=== PATIENT | male | born 1975 | race African-American/Black ===

== ENCOUNTER 2019-08-21 18:40 | Inpatient (IN) ==
[2019-08-21] MEDS ORDERED: NS 1,000 ML IV ONE (19:51)
[2019-08-21] MEDS ORDERED: CLINDAMYCIN 600 MG/NS 600 MG/50 ML IVPB IV ONE (20:39)
[2019-08-21] MEDS ORDERED: FLAGYL 500 MG/NS 500 MG/100 ML IVPB IV ONE (20:39)
[2019-08-21 20:42] LABS: BASO# 0.03 X1000 (0.0-0.2); BASO% 0.3 % (0.0-0.8); EOS# 0.02 X1000 (0.0-0.7); EOS% 0.2 % (0.0-10.0); HEMATOCRIT 42.1 % (42.0-52.0); HEMOGLOBIN 13.8 g/dL (14.0-18.0); LYMPH% 13.5 % (20.5-51.1); MCH 30.2 PG (27-31); MCHC 32.8 g/dL (33-37); MCV 92.1 FL (81-99); MONO# 1.05 X1000 (0.11-0.59); MONO% 11.8 % (1.7-9.3); MPV 12.2 FL (7.4-10.4); NEUT# 6.58 X1000 (1.4-6.5); NEUT% 74.2 % (42.2-75.2); PLT 195 X1000 (130-400); RBC 4.57 XMIL (4.7-6.1); RDW 12.8 % (11.5-14.5); WBC 8.88 X1000 (4.8-10.8)
[2019-08-21] MEDS ORDERED: CLINDAMYCIN 600 MG/D5W 600 MG/50 ML IVPB IV ONE (21:00)
[2019-08-21] MEDS ORDERED: MOTRIN PO ONE (21:31)
[2019-08-21] MEDS ORDERED: MORPHINE IV ONE (21:32)
[2019-08-21 21:33] LABS: AGAP 18; ALB/GLOB RATIO 0.9; ALBUMIN 3.9 g/dL (3.5-5.0); ALKALINE PHOSPHATASE 113 U/L (32-122); BUN 10 mg/dL (8-22); CALCIUM 10.4 mg/dL (8.8-10.2); CHLORIDE 91 mmol/L (98-107); COSMO 279; CREATININE 1.1 mg/dL (0.7-1.2); ESTIMATED GFR > 60; GOT 34 U/L (10-34); GPT 32 U/L (10-44); POTASSIUM 4.2 mmol/L (3.5-5.1); SODIUM 131 mmol/L (136-145); TCO2 22 mmol/L (25-35); TOTAL BILIRUBIN 1.53 mg/dL (0.20-1.00); TOTAL PROTEIN 8.2 g/dL (6.3-8.3)
[2019-08-21] MEDS ORDERED: LEVAQUIN 750 MG/D5W 750 MG/150 ML IVPB IV SCH (21:45)
[2019-08-21 21:46] LABS: GLUCOSE 399 mg/dL (70-104)
--- NOTE | 2019-08-21 22:40 | PROVIDER DOCUMENTATION ---
This chart was entered by Champ Lopez Scribe, acting as scribe for Rebeca Elizabeth MD. HPI-Rash/Wound/ReCheck - General Chief Complaint: Abscess Stated Complaint: ABCESS ON STOMACH Time Seen by Provider: 08/21/19 19:21 Source: patient, family Allergies/Adverse Reactions: Allergies Allergy/AdvReac Type Severity Reaction Status Date / Time Penicillins Allergy Unknown Verified 08/21/19 19:58 Home Medications: Home Medication List Medication Instructions Recorded Confirmed Last Taken Type Rosuvastatin Calcium 20 mg PO QHS 05/08/18 08/21/19 Unknown History Sitagliptin Phosphate [Januvia] 100 mg PO DAILY 05/08/18 08/21/19 Unknown History Solriamfetol HCl [Sunosi] 75 mg PO DAILY 08/21/19 08/21/19 Unknown History Insulin Glargine [Lantus Insulin] 30 unit SUBQ DAILY #1 unit 08/24/19 Unknown Rx Sulfamethoxazole/Trimethoprim 1 ea PO BID #20 tab 08/24/19 Unknown Rx [Bactrim Ds Tablet] - History of Present Illness-Dermatology Nature of Presenting Problem: 43 yof presents to the ed with c/o abscess on RLQ of abdomen. pt states similar hx. pt states onset for 3 days. pt states last occurrence was 2 months ago, busted on its own. pt states couple of surgeries to drain abscess(1-2 years ago) , but usually drains on its own. pt states hx of DM, with mediation Location: reports: other (RLQ abdomen) Quality: reports: painful Onset/Duration: reports: 3 days ago Timing: reports: still present (busted in ed on its own draining) Context/Associated Symptoms: reports: abscess Identifiable cause?: No Locality of Occurance: Home Similar Symptoms Previously?: Yes Recently seen or treated by another doctor?: No Review of Systems - Adult - REVIEW OF SYSTEMS - ADULT Constitutional: denies: chills, fever Eyes: reports: no symptoms reported Ears, Nose, Mouth & Throat: reports: no symptoms reported Cardiovascular: reports: no symptoms reported Respiratory: denies: shortness of breath, wheezing Gastrointestinal: denies: diarrhea, nausea, vomiting Genitourinary: reports: no symptoms reported Musculoskeletal: reports: no symptoms reported Integumentary: reports: see HPI. denies: hives, rash Neurological: reports: no symptoms reported Psychiatric: reports: no symptoms reported Endocrine: reports: no symptoms reported Hematologic/Lymphatic: reports: no symptoms reported Allergic/Immunologic: reports: no symptoms reported All Other Systems: Reviewed and Negative Past History - Adult - PAST MEDICAL HISTORY-ADULT Review of Records: reports: Old Records Reviewed, Nursing Assessment Review, Medications Reviewed, Social history reviewed & non-contributory. Major Childhood Illnesses: reports: denies history Cardiovascular: reports: HTN Respiratory: reports: denies history Gastrointestinal: reports: denies history Obstetrical/Gynecological: reports: denies history Genitourinary: reports: denies history Musculoskeletal: reports: denies history Neurological: reports: denies history Psychiatric: reports: denies history Endocrine/Immune: reports: Diabetes Other Conditions: reports: denies history - PRIOR SURGERIES/PROCEDURES Surgical/Procedure History: reports: reviewed, not pertinent - IMMUNIZATION STATUS Childhood Immunizations: See Nurse Assessment Flu Vaccine: See Nurse Assessment - FAMILY HISTORY Family History: reviewed, not pertinent - SOCIAL HISTORY Smoking: cigarettes, less than 1 pack/day Provider spent 3-5 mins advising pt. on dangers of tobacco.: Discussed manners to quit use, and f/u contacts for add'l counseling. Substance Use: alcohol Alcohol Use Frequency: occasionally Living Situation: family Physical Exam-General - PHYSICAL EXAM-ADULT Initial Vital Signs Reviewed: Yes - CONSTITUTIONAL General Appearance: appears well, alert, mild distress, obese - RESPIRATORY Respiratory: chest non-tender, lungs clear, normal breath sounds - CARDIOVASCULAR Cardiovascular: regular rate, rhythm, tachycardia (128) - GENITOURINARY Male Genitalia: deferred Rectal Exam: deferred Hemoccult Exam: deferred - SKIN Integumentary: other (abscess RLQ of abdomen) - NEUROLOGIC Neurologic: grossly normal, no motor/sensory deficits - PSYCHIATRIC Psych/Mental Status: normal mood/affect, normal thought content, normal thought process, oriented x 3 Progress - PLAN OF CARE/RESULTS Result Diagrams: 08/23/19 06:37 08/23/19 06:37 - REASSESSMENT Reassessment #1 Time Reassessed: 00:44 Status: unchanged (no current concerns for sepsis as pt with normal WBC and normal lactate. CT showing draining abscess, no concerns for bowel involvement. pt to be admitted. added vanc for MRSA coverage.) - CT/MRI 1 CT Study: Abdomen, Pelvis Impression: See EMR Report (significant anterior pelvic wall soft tissue swelling and areas of gas including skin ulceration or open wound. no underlying fluid collection or hernia. 15mm left adrenal nodule, stable, kidney cyst, stable enlarged fatty liver, similar to previous CT,) - CONSULTS/PCP/HOSPITALIST Notification #1 *Consult/PCP/Hospitalist*: Dr. Bazan Time Discussed: 21:31 (levaquin and flagyl) Consult Disposition: Admit, other #2 Consult: Dr. Kraus Time Discussed: 22:25 Consult Disposition: Will see in ED Departure - Departure Date of Disposition Decision: 08/21/19 Time of Disposition Decision: 22:39 DIAGNOSIS: Tobacco use, Abscess Disposition: ADMITTED INPATIENT 09 Certified Medical Emergency: Emergent Condition: Stable - Critical Care Note This patient required my direct & personal management of CC.: No Attestation - Physician/ ANAIS Attestation Patient care was provided by Advanced Practice Provider:: Yes Advanced Practice Provider documentation review:: The Mid-level provider documentation, treatment plan and medical decision making was reviewed by the physician who agrees with all treatment and medical decision making by the MLP. The physician spent face to face time with patient:: Yes Advanced Practice Provider documentation review:: Supervising physician onsite and consulted in the evaluation and care of this patient. The physician did have a face to face encounter with the patient. This chart was documented by the indicated scribe, (Champ Lopez, Zac) and accurately reflects the services I performed and decisions made by me, Rebeca Elizabeth MD, as attested by the provider's signature.
[2019-08-21] MEDS ORDERED: VANCOMYCIN 1 GM/NS 1 GM/250 ML IVPB IV ONE (23:34)
[2019-08-22] MEDS ORDERED: VANCOMYCIN IV PER PHARMACY MISC SCH (00:30)
[2019-08-22] MEDS ORDERED: ZOFRAN IV PRN (01:00)
[2019-08-22] MEDS ORDERED: MORPHINE IV PRN (01:00)
[2019-08-22] MEDS: NS 1,000 ML IV SCH ×3 (01:28→18:02)
--- NOTE | 2019-08-22 03:12 | HISTORY AND PHYSICAL ---
PRIMARY CARE PHYSICIAN: Dr. Varinder Savage. CHIEF COMPLAINT: Abdominal abscess. HISTORY OF PRESENTING ILLNESS: A 43-year-old male with a history of diabetes mellitus type 2, hyperlipidemia, who had presented to emergency department with 3 days history of sore/abscess on his abdomen for the past 3 days. The patient states that it was getting larger. He was evaluated in the emergency department and it seems that the sore burst and some pus was draining out. His case was discussed with General Surgery who recommended admission and when possible I and D if not improved. At the time of my examination, patient denied any headache, fever, chills, chest pain, shortness of breath, hemoptysis, melena or weight changes, but complained of abdominal discomfort from the abscess. PAST MEDICAL HISTORY: Include diabetes mellitus type 2, hyperlipidemia. PAST SURGICAL HISTORY: None. ALLERGIES: Penicillin. CURRENT MEDICATIONS: He does not recall and nursing staff will reconcile. SOCIAL HISTORY: 30 pack years history of smoking. Admits to social alcohol use. Denies any illicit drug use. FAMILY HISTORY: No history of coronary artery disease. REVIEW OF SYSTEMS: Fourteen point review of systems as listed in HPI. Other systems negative. PHYSICAL EXAMINATION: GENERAL: Cooperative, friendly male. He is resting more comfortably now. VITAL SIGNS: Temperature 101.2 degrees, pulse 114, respirations 22, blood pressure 154/88. HEENT: Atraumatic, normocephalic. Extraocular movements intact. PERRLA. NECK: No masses. CHEST: Clear to auscultation. CARDIOVASCULAR: Regular rate and rhythm. ABDOMEN: Soft and there is an abscess that is draining and he has a large pannus. GENITOURINARY: No bladder distention. SKIN: Warm. LABORATORIES AND STUDIES: Sodium 131, potassium 4.2, chloride 91, CO2 is 22, BUN is 10, creatinine is 1.1, glucose is 399. WBC is 8.88, hemoglobin 13.8, hematocrit 42.1, platelets 195,000. ASSESSMENT: This is a 43-year-old male with a history of diabetes mellitus type 2, hyperlipidemia, who had presented to emergency department with 3 days history of having a sore/abscess that seemed to be increasing. He was evaluated the emergency department. It seems that the abscess burst and was draining foul material. His case was discussed with General Surgery who recommended admission for further management. 1. Abdominal abscess. 2. Diabetes mellitus type 2. 3. Hyperlipidemia. PLAN: 1. We will admit patient to medical floor with telemetry. 2. We will keep patient NPO. 3. We will start patient on IV antibiotics. 4. General Surgery was already consulted. 5. We will monitor blood glucose and put patient on sliding scale insulin regimen. 6. Put patient on DVT prophylaxis with SCDs. 7. We will continue to follow, reassess, make further recommendation based on patient's clinical course. cc: Jorje Kraus MD
[2019-08-22] MEDS ORDERED: VANCOMYCIN 1 GM/NS 1 GM/250 ML IVPB IV ONE (06:00)
[2019-08-22] MEDS: HUMULIN R SUBQ SCH ×4 (06:15→20:21)
--- NOTE | 2019-08-22 07:13 | GENERAL SURGERY CONSULTATION ---
DATE: 08/22/2019 REQUESTING PHYSICIAN: The hospitalist. REASON FOR CONSULTATION: Consult is regarding abdominal abscess. HISTORY OF PRESENT ILLNESS: A 43-year-old gentleman with a history of diabetes mellitus type 2 and hyperlipidemia who presented to the emergency department for a 3 day history of an abscess and sore on his abdomen. He says it was getting larger. When he came to the emergency department, it had a spontaneous rupture and drained pus which was cultured per the ER. He did get a CT scan that showed an abscess in his subcutaneous tissue but no communication intra-abdominally. He is feeling a little bit better now. I was asked to weigh an opinion. PAST MEDICAL HISTORY: Includes: 1. Diabetes mellitus type 2. 2. Hyperlipidemia. PAST SURGICAL HISTORY: None. ALLERGIES: Penicillin. HOME MEDICATIONS: In the MAR and reviewed. SOCIAL HISTORY: Current smoker. Social alcohol. FAMILY HISTORY: No history of coronary artery disease. REVIEW OF SYSTEMS: A full 14 systems reviewed and negative except as specified in the HPI. PHYSICAL EXAMINATION: Vital Signs: The patient is currently with a temperature of 97.4 degrees. His T-max is 101.2 degrees. Remainder of his vitals have been stable. General Examination: No acute distress. Alert, interactive, male, looks stated age. HEENT: Normocephalic, atraumatic. Pupils equal, round, and reactive to light. Mucous membranes moist. Oropharynx benign. Neck: Supple. Trachea midline. Cardiovascular: Regular rate and rhythm. Lungs: Grossly clear. Abdomen: Soft. There is an abscess noted in his pannus, right lower quadrant. Not draining but there is some induration noted around it. Extremities: Moves all extremities. Neurologic: Grossly intact. Skin: As noted above. Vascular: All extremities perfused. LABORATORY DATA: White blood cell count is normal. Remainder of labs reviewed. CT scan independently reviewed and radiology report reviewed. ASSESSMENT AND PLAN: A 43-year-old gentleman with diabetes with abdominal abscess. Abdominal abscess. At this time, I agree with broad coverage with antibiotics until we get the speciation from the culture. At this point, we will give him back his diet. We will see how he does. We will add warm compresses to the area and see if we can drain it some more. If it does not seem to drain much more, may need to consider opening it up in the operating room. We will make further recommendations tomorrow. cc: Manny Bazan MD
--- NOTE | 2019-08-22 07:18 | Diag Imaging Result Doc PS360 ---
EXAM: CT ABD/PELVIS W/PO AND IV CON 08/21/2019 HISTORY: abd abscess TECHNIQUE: This exam was performed using automated exposure control, adjustment of mA or kV according to patient size, and/or use of iterative reconstruction technique. COMMENT: The visualized portion of the chest is stable in appearance compared to 05/08/2018. There are multiple calcified granulomata present in the spleen. There is at least one calcified granuloma in the liver and the liver is somewhat hypodense suggesting fatty change. The gallbladder is not distended and there are no apparent stones. There is some enlargement of the left adrenal gland but this has not changed significantly since the previous study and is presumably due to hyperplasia or an adenoma. The pancreas is normal in appearance. There is no evidence of hydronephrosis or mass in the kidneys. There is a small cortical cyst in the left kidney which was also present previously. There is no evidence of bowel obstruction or significant adenopathy. Pelvis: The appendix is normal in appearance. There is no evidence of free fluid. The urinary bladder is not distended. There are prominent right inguinal nodes one of which measures in excess of 3.1 cm in diameter. This node appears slightly larger than on the previous examination. There continues to be skin thickening over the panniculus with an apparent abscess or abscesses in the subcutaneous fat, with apparent draining sinus. The gas collections were not evident in the fluid collection on the previous study which appears to have been slightly more voluminous that time. The regional skeleton is intact. IMPRESSION: Chronic or recurrent subcutaneous abscess, with apparent draining sinus in the skin, in the panniculus on the right over the pelvis. Chronic right inguinal adenopathy, slightly worse. Hepatic steatosis. Otherwise no acute disease in the abdomen or pelvis. Electronically signed by Cl Trivedi 08/22/2019 7:16 AM
[2019-08-22] MEDS ORDERED: PEPCID PO ONE (12:03)
--- NOTE | 2019-08-22 12:41 | PROGRESS NOTE ---
DATE: 08/22/2019 SUBJECTIVE: This morning, Mr. Armas referred to be doing well. The abdominal abscess continues to be draining. No new complaints. OBJECTIVE: Vital Signs: Blood pressure is 116/71, pulse of 97, respirations 20, temperature is 97.9 degrees. General: Mr. Armas is a 43-year-old, morbidly obese, gentleman. BMI of 47.4. He is in bed. No distress. HEENT: Mucosa is pink and moist. Anicteric. Acyanotic. Neck: Supple. Chest: Good air entry bilateral. There were no crepitations, no rhonchi. Cardiovascular: Regular rate and rhythm. There were no murmurs, no rubs, no gallops. GI: Abdomen is soft. It is distended, but nontender. There is a small area in the lower abdomen, almost midline, that is extruding some purulence. The area around it also is quite erythematous and tender. LABORATORY DATA: Laboratory data from yesterday. None for today. Glucose is 328. So far, blood culture is still pending. The abdomen stain showed no growth. MEDICATIONS: The patient's medications have all been reviewed. ASSESSMENT: 1. Abdominal subcutaneous abscess with spontaneous drain associated with cellulitis. 2. Diabetes mellitus type 2 with hyperglycemia. The patient is on oral hypoglycemic agents at home. Will use insulin while he is in the hospital. Will also check his A1c to see how his glucoses have been for the past 3 months. 3. Dyslipidemia. He is on statin. 4. Clinical volume depletion. Will continue with fluids. 5. Tobacco use and abuse. The patient has been counseled. Nicotine patch has been offered. The patient does not want that. 6. Previous history of methicillin-sensitive Staphylococcus aureus in the wound at the same abdominal site. Noted. cc: Ac Romero MD MTDD
[2019-08-22] MEDS: LANTUS INSULIN SUBQ SCH (12:48)
[2019-08-22] MEDS: VANCOMYCIN 2,000 MG in NS 500 ML IV SCH (17:26)
[2019-08-22] MEDS: CRESTOR PO SCH (20:21)
[2019-08-22] MEDS: LEVAQUIN 750 MG/D5W 750 MG/150 ML IVPB IV SCH (22:21)
[2019-08-23] MEDS: VANCOMYCIN 2,000 MG in NS 500 ML IV SCH ×2 (06:11→21:27)
[2019-08-23] MEDS: HUMULIN R SUBQ SCH ×4 (06:13→21:27)
[2019-08-23 07:48] LABS: HEMOGLOBIN A1C 9.7 % (4.8-6.0)
[2019-08-23 07:59] LABS: AGAP 13; BUN 10 mg/dL (8-22); CALCIUM 9.2 mg/dL (8.8-10.2); CHLORIDE 96 mmol/L (98-107); COSMO 276; CREATININE 0.7 mg/dL (0.7-1.2); ESTIMATED GFR > 60; GLUCOSE 293 mg/dL (70-104); POTASSIUM 4.1 mmol/L (3.5-5.1); SODIUM 133 mmol/L (136-145); TCO2 24 mmol/L (25-35)
[2019-08-23 08:10] LABS: BASO# 0.04 X1000 (0.0-0.2); BASO% 0.5 % (0.0-0.8); EOS# 0.11 X1000 (0.0-0.7); EOS% 1.4 % (0.0-10.0); HEMATOCRIT 35.9 % (42.0-52.0); HEMOGLOBIN 11.6 g/dL (14.0-18.0); IMM GRAN# 0.05 X1000 (0.0-0.04); IMM GRAN% 0.6 % (0.0-0.5); MCH 29.8 PG (27-31); MCHC 32.3 g/dL (33-37); MCV 92.3 FL (81-99); MONO# 0.93 X1000 (0.11-0.59); MONO% 11.7 % (1.7-9.3); MPV 11.8 FL (7.4-10.4); NEUT# 4.89 X1000 (1.4-6.5); NEUT% 61.8 % (42.2-75.2); PLT 211 X1000 (130-400); RBC 3.89 XMIL (4.7-6.1); RDW 12.4 % (11.5-14.5); WBC 7.92 X1000 (4.8-10.8)
[2019-08-23] MEDS: LANTUS INSULIN SUBQ SCH ×2 (08:41→11:47)
[2019-08-23 09:42] LABS: BANDS 4 % (0-1); LYMPHS 26 % (21-51); MONO 14 % (1-9); SEGS 54 % (42-75)
--- NOTE | 2019-08-23 13:11 | GENERAL SURGERY PROGRESS NOTE ---
DATE: 08/23/2019 SUBJECTIVE: The patient seems to be doing okay. OBJECTIVE: Vital Signs: The patient is currently afebrile. His vital signs are stable. General: No acute distress. Cardiovascular: Regular rate and rhythm. Lungs: Grossly clear. Abdomen: Obese. Area of induration seems to be overall improving. Still having some mild drainage from his abdominal wound. ASSESSMENT AND PLAN: A 43-year-old gentleman with abdominal wall abscess. Abdominal wall abscess. At this time, agree with antibiotics. I would like to continue warm compresses and try to see if we can continue to drain this more. At this point, microbiology surprisingly has not shown anything, but will continue to monitor him. cc: Manny Bazan MD
--- NOTE | 2019-08-23 20:47 | PROGRESS NOTE ---
DATE: 08/23/2019 SUBJECTIVE: This morning Mr. Armas refers to be doing well. He continues to have some draining from the lower abdomen wound. OBJECTIVE: Vital signs: Blood pressure is 121/56, pulse of 91, respirations 20, temperature is 98.3 degrees. General: Mr. Armas is a 43-year-old gentleman. He is in bed, no distress. Mucosa is pink and moist. Anicteric. Acyanotic. Neck: Supple. Chest: Clear to auscultation. No crepitations. No rhonchi. Cardiovascular: Regular rate and rhythm. No murmurs, no rubs, no gallops. Gastrointestinal: Abdomen is soft, minimally distended. There is a little opening in the lower abdomen, which is oozing some purulent material. There is an associated surrounding cellulitis. Central nervous system: Patient is awake, alert, and oriented. There is no focal neurological deficit. LABORATORY DATA: CBC shows normocytic anemia. Chemistry for the most part is unremarkable. Glucose is 291. The patient's A1c is 9.7. ASSESSMENT: 1. Abdominal wall subcutaneous abscess with spontaneous draining associated with cellulitis. Culture negative. The patient is on IV antibiotics. Wound care and surgery on board. 2. Diabetes mellitus with presenting A1c of 9.7. The patient is currently on insulin. We are going to titrate it up for better glycemic control. 3. Dyslipidemia. We will continue with statin. 4. Tobacco use and abuse. Patient has been counseled. 5. Previous methicillin-sensitive Staphylococcus aureus from the abdominal wound noted. 6. Clinical volume depletion, improved. PLAN: In general, Mr. Armas is doing well. He remains hyperglycemic so I have gone up on his insulin needs. We are going to continue with the current antimicrobial coverage, re-evaluate him tomorrow. If he is looking much better, I think we can get him home on oral antibiotics, and he will need to be on insulin to make sure he has a very good glycemic control to give the wound a better chance of self healing. cc: Ac Romero MD
[2019-08-23] MEDS: CRESTOR PO SCH (21:27)
[2019-08-24] MEDS: VANCOMYCIN 2,000 MG in NS 500 ML IV SCH ×2 (00:50→10:51)
[2019-08-24] MEDS: LEVAQUIN 750 MG/D5W 750 MG/150 ML IVPB IV SCH (01:30)
[2019-08-24] MEDS: HUMULIN R SUBQ SCH (07:25)
[2019-08-24] MEDS ORDERED: LANTUS INSULIN SUBQ SCH ×2 (09:00)
[2019-08-24] MEDS ORDERED: HUMALOG SUBQ SCH ×2 (09:00→11:00)
[2019-08-24 11:14] VITALS: BP 131/77
--- NOTE | 2019-08-24 13:04 | GENERAL SURGERY PROGRESS NOTE ---
DATE: 08/24/2019 SUBJECTIVE: Patient seems to be doing okay. OBJECTIVE: Vital Signs: Patient is currently afebrile. His vital signs are stable. General: No acute distress. Cardiovascular: Regular rate and rhythm. Lungs: Grossly clear. Abdomen: Soft. Wound overall seems to be improving. Induration seems to be less. No active drainage noted today. ASSESSMENT AND PLAN: A 43-year-old gentleman with abdominal wall abscess: Abdominal wall abscess. At this time, I agree with potentially transitioning over to p.o. antibiotics and monitoring at home and see the patient back in the office. cc: Manny Bazan MD
--- NOTE | 2019-08-25 15:12 | DISCHARGE SUMMARY ---
ADMISSION DATE: 08/21/2019 DISCHARGE DATE: 08/24/2019 DISPOSITION: Home. FOLLOWUP: Followup will be with Dr. Bazan and Dr. Savage. CONSULTATIONS DURING THIS ADMISSION: Surgery was consulted. The patient was seen by Dr. Bazan. INVASIVE PROCEDURES DONE DURING THIS ADMISSION: None. IMAGING STUDIES OF SIGNIFICANCE: CT scan of the abdomen and pelvis showed chronic or recurrent subcutaneous abscess with apparent drain sinus in the skin in the panniculus on the right over the pelvis. There is also chronic right inguinal adenopathy, slightly worsened. There is hepatic steatosis. ADMISSION DIAGNOSES: 1. Abdominal abscess. 2. Diabetes mellitus. 3. Dyslipidemia. DISCHARGE DIAGNOSES: 1. Recurrent abdominal wall subcutaneous abscess with spontaneous draining associated with cellulitis. Culture positive for gram-positive cocci. At the time of the discharge, the final culture report was not ready. When I called micro, I was told that this was a coagulase-negative staph, but they are still waiting for the final sensitivity. However, Mr. Armas was very adamant that he get discharged or he would leave AGAINST MEDICAL ADVICE, which I think he would not get any medication, so I think it was reasonable to discharge him, get him prescription so he does not get worsening of his infectious disease. 2. Diabetes mellitus with presenting A1c of 9.7. The patient has been started on insulin regimen. 3. Dyslipidemia. 4. Tobacco use and abuse. The patient has been counseled. 5. Clinical volume depletion, improved. 6. Previous methicillin-sensitive Staphylococcus aureus infection of the wound. DISCHARGE MEDICATIONS: 1. Crestor 20 mg p.o. at bedtime. 2. Januvia 100 mg p.o. daily. 3. Solriamfetol 75 mg p.o. daily. 4. Bactrim double-strength 1 tablet b.i.d. 5. Insulin glargine 30 units subcutaneously daily. The patient is supposed to do renal function tests in about a week because of the Bactrim, to follow up on his creatinine and his potassium. PRESENTING COMPLAINT: Abdominal abscess. HISTORY OF PRESENTING COMPLAINT: Mr. Armas is a 43-year-old male with a history of diabetes and dyslipidemia, who came into the emergency department because of abscess draining under his lower abdomen for the past 3 days, which seems to be getting bigger. Upon presentation, he was evaluated and was admitted for further medical care. HOSPITAL COURSE: Mr. Armas was admitted to the medical floor, was started on broad-spectrum IV antibiotics. The wound was cultured. His glucose was controlled on insulin regimen. Surgery was consulted. He was seen by Dr. Bazan. Because he had spontaneous drainage and it was draining well, Surgery just recommended to continue medical management. Mr. Armas was in the hospital for 3 days. Unfortunately today, his culture was positive for gram-positive cocci. When I called the micro, they said it looks like a coagulase-negative staph, but they do not have the complete sensitivity. Mr. Armas was extremely adamant that he would leave whether we discharged him or he goes AGAINST MEDICAL ADVICE. I think being a coagulase-negative staph, he would be okay going home on Bactrim. I will follow up on the culture report, but he is also supposed to follow up with Dr. Bazan on the wound. If the culture report shows that this is not sensitive to Bactrim, we will change the antibiotics accordingly, but clinically, I think he will be okay going home. He will follow up with Dr. Bazan as indicated. Mr. Armas was also advised on insulin therapy at this point together with Angie because of his A1c. He was on metformin. This has been withheld because of the fact that he is going to be on Bactrim to avoid any drug-drug interaction, and also any worsening renal failure will make the metformin toxicity higher. All the discharge instructions have been discussed with him. At the time of the discharge, his blood pressure was 131/77, pulse of 83, respirations 18, temperature is 97.3 degrees, he was saturating 100% on room air. TIME SPENT: Time spent for discharge was 35 minutes. cc: MD Varinder Bhatt MD Matthew L. Figh, MD MTDD
== END 2019-08-24 13:07 | disposition home or self-care (01) | DRG 603 ==
LOC: ED 18:40 → 3N 18:41 → SUATTDRO 18:41
PROVIDERS: ATTEND Internal Medicine